=== PATIENT | female | born 1990 | race Two or more races ===

== ENCOUNTER 2018-05-10 21:24 | Emergency (ER) | payer SELFPAY ==
[~2018-05-10] VITALS: Ht 160 cm; Wt 56.7 kg
[2018-05-10] MEDS ORDERED: LORazepam 2MG/ML-1ML VIAL IM ONE (21:30)
[2018-05-10 22:00] VITALS: BP 136/93
== END 2018-05-10 22:03 | disposition home or self-care (01) ==
LOC: EDBD 21:24 → ER 21:27
DX: F41.0 Panic disorder [episodic paroxysmal anxiety] (principal)
CPT/HCPCS: 96372; 99284; J2060

== ENCOUNTER 2019-11-08 23:54 | Emergency (ER) | payer MEDICAID ==
[~2019-11-08] VITALS: Ht 165.1 cm; Wt 63.5 kg
[2019-11-09 00:47] VITALS: BP 106/59
== END 2019-11-09 05:03 | disposition left against medical advice (07) ==
LOC: EDBD 23:54 → ER 23:57
DX: G43.909 Migraine, unspecified, not intractable, without status migrainosus (principal); Z53.21 Procedure and treatment not carried out due to patient leaving prior to being seen by health care provider